=== PATIENT | male | born 1985 | race African-American/Black ===

== ENCOUNTER 2017-06-14 09:16 | Emergency (ER) | payer SELFPAY ==
[~2017-06-14] VITALS: Ht 172.7 cm; Wt 80.0 kg
[~2017-06-14 09:16] MED LIST: HYDR30CR RECTAL
[2017-06-14 09:21] VITALS: BP 144/68; PULSE 70; RESP 16; TEMP 98.3; O2SAT 100
--- NOTE | 2017-06-14 09:54 | PD ---
HPI Chief Complaint: Skin Problem Time Seen by Provider: 09:36 Travel History International Travel<30 days: No Contact w/Intl Traveler<30days: No Traveled to known affect area: No History of Present Illness HPI 32-year-old male presents to the emergency room for evaluation of abscess to his scrotum that he first noticed about a week ago. He went to [facility] where he had it drained and packed. States he was not given antibiotics. States it seems to be returning and worsening. Reports increased tenderness and mild redness around the area. Denies fever, chills, nausea, vomiting. Patient denies any chronic medical conditions or daily medications. PFSH Social History Alcohol Use: Yes Tobacco Use: Yes Substance Use: Yes Allergies-Medications (Allergen,Severity, Reaction): Coded Allergies: No Known Allergies (Unverified Adverse Reaction, Unknown, 06/14/17) Reported Meds & Prescriptions Reported Meds & Active Scripts Active Analpram-Hc (Hydrocortisone Acetate W/ Pram) 1 Cre Cre 1 Applic RECTAL Q8HR PRN Review of Systems Except as stated in HPI: all other systems reviewed are Neg Physical Exam Narrative GENERAL: Well-nourished, well-developed male in no acute distress. Afebrile. Ambulatory. SKIN: Focused skin assessment warm/dry. There is an indurated area in the left lateral, upper scrotum which measures about 1 cm in diameter. It is fluctuant but there is no pointing or drainage. No surrounding erythema or lymphangitis. HEAD: Normocephalic. EYES: No scleral icterus. No injection or drainage. NECK: Supple, trachea midline. No JVD or lymphadenopathy. CARDIOVASCULAR: Regular rate and rhythm without murmurs, gallops, or rubs. RESPIRATORY: Breath sounds equal bilaterally. No accessory muscle use. PSYCHIATRIC: No delusional thought processes. No hallucinations. Data Data Last Documented VS Vital Signs Date Time Temp Pulse Resp B/P (MAP) Pulse Ox O2 Delivery O2 Flow Rate FiO2 06/14/17 09:21 98.3 70 16 144/68 (93) 100 MDM Medical Decision Making Medical Screen Exam Complete: Yes Emergency Medical Condition: Yes Medical Record Reviewed: Yes Differential Diagnosis Abscess, cellulitis, STD unlikely Narrative Course 32-year-old male presents to the emergency room for evaluation of an abscess to his scrotum that has been present for about 1 week. He went to [facility] about a week ago and had it drained but was not given antibiotics. He is concerned that is returning. Patient denies any systemic signs of infection. Physical exam reveals a 1 cm indurated area to the left scrotum without surrounding erythema. It is very superficial. No drainage. Abscess, likely from infected hair follicle, is no longer open and does not appear acutely infected. Induration is likely scar tissue. Patient was offered incision and drainage but declined preferring to watch and wait which is reasonable. The redness that he was concerned about is just the scar from previous incision. Told to follow-up with a primary care physician or return for worsening symptoms. He understands and agrees to plan. Diagnosis Primary Impression: Scrotal wall abscess Referrals: Primary Care Physician Additional Instructions: Rest and drink plenty of fluids. Follow up with a primary care physician. Return to emergency room for worsening symptoms, as discussed. Med/Other Pt SpecificInfo: Prescription(s) given Disposition: 01 DISCHARGE HOME Condition: Stable Carine Schumacher Jun 14, 2017 09:54
== END 2017-06-14 10:16 | disposition home or self-care (01) ==
LOC: NEPK 09:16
DX: N49.2 Inflammatory disorders of scrotum (principal); Z72.0 Tobacco use
CPT/HCPCS: 99281